=== PATIENT | male | born 1975 | race Caucasian/White ===

== ENCOUNTER 2017-06-23 20:33 | Emergency (ER) | payer MEDICAID, OTHER ==
[2017-06-23 20:58] VITALS: BP 101/50
--- NOTE | 2017-06-23 21:56 | ED PDOC ---
Arrival/HPI - General Chief Complaint: Lower Extremity Problem/Injury Time Seen by Provider: 06/23/17 21:42 Historian: Patient - History of Present Illness Narrative History of Present Illness (Text): 06/23/17 21:53 42yo male with no Past medical history present with complaint of b/l knee pain since this afternoon. States pain started gradually, while lifting at work and became worse this evening. Notes that pain is with weight bearing. He did not take any pain medication. He denies previous history. Denies calf pain, trauma, swelling, any other complaint. Past Medical History - Provider Review Nursing Documentation Reviewed: Yes - Infectious Disease Hx of Infectious Diseases: None - Psychiatric Hx Substance Use: Yes (marijuana) - Anesthesia Hx Anesthesia: No Family/Social History - Physician Review Nursing Documentation Reviewed: Yes Family/Social History: Unknown Family HX Smoking Status: Light Smoker < 10 Cigarettes Daily Hx Alcohol Use: No Hx Substance Use: Yes (marijuana) Allergies/Home Meds Allergies/Adverse Reactions: Allergies No Known Allergies Allergy (Verified 06/23/17 20:58) Review of Systems - Physician Review All systems were reviewed & negative as marked: Yes - Review of Systems Constitutional: Normal Eyes: Normal ENT: Normal Respiratory: Normal Cardiovascular: Normal Gastrointestinal: Normal Genitourinary Male: Normal Musculoskeletal: Arthralgias (b/l knee) Skin: Normal Neurological: Normal Endocrine: Normal Hemo/Lymphatic: Normal Psychiatric: Normal Physical Exam Vital Signs Reviewed: Yes Vital Signs Temp Pulse Resp BP Pulse Ox 06/23/17 20:53 98.1 F 81 18 101/50 L 97 Temperature: Afebrile Blood Pressure: Normal Pulse: Regular Respiratory Rate: Normal Appearance: Positive for: Well-Appearing, Non-Toxic, Comfortable Pain Distress: None Mental Status: Positive for: Alert and Oriented X 3 - Systems Exam Head: Present: Atraumatic, Normocephalic Pupils: Present: PERRL Extroacular Muscles: Present: EOMI Conjunctiva: Present: Normal Mouth: Present: Moist Mucous Membranes Neck: Present: Normal Range of Motion Respiratory/Chest: Present: Clear to Auscultation, Good Air Exchange. No: Respiratory Distress, Accessory Muscle Use Cardiovascular: Present: Regular Rate and Rhythm, Normal S1, S2. No: Murmurs Abdomen: Present: Normal Bowel Sounds. No: Tenderness, Distention, Peritoneal Signs Back: Present: Normal Inspection Upper Extremity: Present: Normal Inspection. No: Cyanosis, Edema Lower Extremity: Present: NORMAL PULSES, Tenderness (B/L lateral knees). No: Edema, Normal ROM (Limited on flexion secondary to pain), Swelling, Erythema, Deformity Neurological: Present: GCS=15, CN II-XII Intact, Speech Normal Skin: Present: Warm, Dry, Normal Color. No: Rashes Psychiatric: Present: Alert, Oriented x 3, Normal Insight, Normal Concentration Medical Decision Making ED Course and Treatment: 06/23/17 22:43 PT in Emergency department for stated history. His pain improved in Emergency department with medication. B/L knee xray - No acute fracture. Mild joint narrowing noted Result DW the pt. Prince wrap applied and crutches given. Referred to ortho. - RAD Interpretation Radiology Orders: 06/23/17 21:45 KNEE W PATELLA BILAT 3 VIEW [RAD] Stat - Medication Orders Current Medication Orders: Discontinued Medications Ketorolac Tromethamine (Toradol) 60 mg IM STAT STA Stop: 06/23/17 21:47 Last Admin: 06/23/17 22:19 Dose: 60 mg MAR Pain Assessment Document 06/23/17 22:19 CAST (Rec: 06/23/17 22:19 CAST [email or web address]) Pain Reassessment Is this a pain reassessment? No Sleep Is patient sleeping during reassessment? No Presence of Pain Presence of Pain Yes Pain Scale Used Pain Scale Used Numeric Location Left, Right or Bilateral Bilateral Pain Location Body Site Knee Description Description Constant Intensity of Pain at present 8 Pain Behavior Facial Grimacing Aggravating Factors Changing Position Alleviating Factors/Management Position Change Techniques Alleviating Factors Medication IM Administration Charges Document 06/23/17 22:19 [email or web address] (Rec: 06/23/17 22:19 [email or web address] [email or web address]) Injection Site MAR Injection Site Left Gluteus Neal Charges for Administration # of IM Administrations 1 Disposition/Present on Arrival - Present on Arrival Any Indicators Present on Arrival: No History of DVT/PE: No History of Uncontrolled Diabetes: No Urinary Catheter: No History of Decub. Ulcer: No History Surgical Site Infection Following: None - Disposition Have Diagnosis and Disposition been Completed?: Yes Diagnosis: Knee pain, bilateral Disposition: HOME/ ROUTINE Disposition Time: 22:45 Patient Plan: Discharge Condition: STABLE Discharge Instructions (ExitCare): Knee Pain (ED) Additional Instructions: Follow up with orthopedist Return to Emergency department for any new symptoms Prescriptions: Naproxen [Naprosyn] 500 mg PO BID #20 tab Referrals: Stevo Matthews, [Primary Care Provider] - Follow up with primary Tay Fragoso MD [Staff Provider] - Follow up with primary Forms: 5 Minutes (Kiswahili)
[2017-06-23 23:48] VITALS: PULSE 88; TEMP 98; O2SAT 99
[2017-06-23 23:49] VITALS: RESP 18
--- NOTE | 2017-06-24 09:06 | RAD ---
PROCEDURE: Bilateral Knee Radiographs. HISTORY: Knee pain COMPARISON: None. FINDINGS: BONES: Right Knee: Normal. No fracture. Left Knee: Normal. No fracture. JOINTS: Right Knee: Normal. No osteoarthritis. Left knee: Normal. No osteoarthritis. SOFT TISSUES: Right Knee: Normal. Left Knee: Normal. JOINT EFFUSION: Right Knee: Small suprapatellar joint effusion. Left Knee: Small suprapatellar joint effusion. OTHER FINDINGS: None. IMPRESSION: No acute fracture or dislocation. Small suprapatellar joint effusions.
== END 2017-06-23 22:45 | disposition home or self-care (01) ==
LOC: ED 20:33
DX: M25.562 Pain in left knee (principal); M25.561 Pain in right knee
CPT/HCPCS: 73562; 96372; 99283; J1885